=== PATIENT | female | born 1990 | race Caucasian/White ===

== ENCOUNTER 2019-09-05 13:40 | Emergency (ER) | payer SELFPAY ==
[~2019-09-05] VITALS: Ht 152.4 cm; Wt 55.8 kg
== END 2019-09-05 16:30 | disposition home or self-care (01) ==
LOC: ED 13:40
DX: R51 Headache (principal)

== ENCOUNTER 2021-03-23 18:46 | Emergency (ER) | payer OTHER ==
[~2021-03-23] VITALS: Ht 152.4 cm; Wt 72.6 kg
[2021-03-23] MEDS ORDERED: CEFDINIR300 MG PO (19:02)
[2021-03-23] MEDS ORDERED: ZYRTEC10 M2 PO (19:02)
== END 2021-03-23 19:07 | disposition home or self-care (01) ==
LOC: ED 18:46
DX: H66.92 Otitis media, unspecified, left ear (principal)